=== PATIENT | female | born 1995 | race Caucasian/White ===

== ENCOUNTER 2019-05-02 04:36 | Outpatient (CLI) | payer OTHER ==
[~2019-05-02 04:36] MED LIST: PRENA1 SOFTGEL1 EACH
== END 2019-05-02 21:32 | disposition home or self-care (01) ==
LOC: OBS/DEL 04:36
DX: O23.42 Unspecified infection of urinary tract in pregnancy, second trimester (principal)

== ENCOUNTER 2019-08-08 08:37 | Inpatient (IN) | payer OTHER ==
[~2019-08-08] VITALS: Ht 157.5 cm; Wt 3.6 kg
[2019-08-11] MEDS ORDERED: COLACE100 MG PO (18:58)
[2019-08-11] MEDS ORDERED: IBU800 MG PO (18:58)
[2019-08-11] MEDS ORDERED: SIMETHICONE125 M1 PO (18:59)
== END 2019-08-11 19:14 | disposition home or self-care (01) | DRG 785 ==
LOC: LDR 08:37 → OB/GYN 14:02 → SURG-SUITE 08-09 13:07
PROVIDERS: ADMIT Specialist; ATTEND Specialist
PROC: 0UL70ZZ Occlusion of Bilateral Fallopian Tubes, Open Approach (ICD-10-PCS; 2019-08-08)
PROC: 4A1HXCZ Monitoring of Products of Conception, Cardiac Rate, External Approach (ICD-10-PCS; 2019-08-08)
PROC: 10D00Z1 Extraction of Products of Conception, Low, Open Approach (ICD-10-PCS; principal; 2019-08-08 07:00)
DX: O82 Encounter for cesarean delivery without indication (principal); Z3A.38 38 weeks gestation of pregnancy; Z37.0 Single live birth; Z30.2 Encounter for sterilization

== ENCOUNTER 2022-08-30 22:19 | Emergency (ER) | payer OTHER ==
[~2022-08-30] VITALS: Ht 157.5 cm; Wt 49.9 kg
[~2022-08-30 22:19] MED LIST changes: +COLACE100 MG PO; +IBU800 MG PO; +SIMETHICONE125 M1 PO
[2022-08-31] MEDS ORDERED: BACTRIM DS TAB1 EACH PO (01:57)
== END 2022-08-31 02:01 | disposition home or self-care (01) ==
LOC: ER 22:19
DX: N39.0 Urinary tract infection, site not specified (principal)